=== PATIENT | female | born 1950 | race Caucasian/White ===

== ENCOUNTER 2016-10-13 11:38 | Inpatient (IN) | payer MEDICARE ==
[2016-10-13] VITALS (12 sets, daily range): BP systolic 120–155; BP diastolic 56–67
[~2016-10-13] VITALS: Ht 157.5 cm; Wt 83.9 kg
[2016-10-13] MEDS ORDERED: LISI10TA2 PO (14:13)
[2016-10-13] MEDS ORDERED: ACET500T68 PO (14:13)
[2016-10-13] MEDS ORDERED: ESTR10TA VG (14:13)
[2016-10-13] MEDS ORDERED: LIDOCAINE 2% 20 ML VIAL. ONE (15:04)
[2016-10-13] MEDS ORDERED: IOHEXOL 300 MG/ML 100ML VIAL. ONE (15:04)
[2016-10-13] MEDS ORDERED: MIDAZOLAM HCL/PF 2 MG/2 ML VIAL. ONE (15:08)
[2016-10-13] MEDS ORDERED: fentaNYL PF VIAL 100 MCG/2 ML VIAL ONE (15:08)
[2016-10-13] MEDS ORDERED: HEPARIN for IV BOLUS 10,000 UNIT/10 ML VIAL. ONE (15:08)
[2016-10-13] MEDS ORDERED: NITROGLYCERIN 200 MCG/2 ML SYRINGE FOR CATH/VASC LAB. ONE ×2 (15:08→15:43)
[2016-10-13] MEDS ORDERED: VERAPAMIL 5 MG/2 ML VIAL. ONE (15:08)
[2016-10-13] MEDS ORDERED: NITROGLYCERIN 200 MCG/2 ML SYRINGE FOR CATH/VASC LAB. ICAR ONE (15:30)
[2016-10-13] MEDS ORDERED: LIDOCAINE 2% 20 ML VIAL. IJ ONE (15:30)
[2016-10-13] MEDS ORDERED: fentaNYL PF VIAL 100 MCG/2 ML VIAL IV ONE (15:30)
[2016-10-13] MEDS ORDERED: VERAPAMIL 5 MG/2 ML VIAL. IART ONE (15:30)
[2016-10-13] MEDS ORDERED: NITROGLYCERIN 200 MCG/2 ML SYRINGE FOR CATH/VASC LAB. IART ONE (15:30)
[2016-10-13] MEDS ORDERED: MIDAZOLAM HCL/PF 2 MG/2 ML VIAL. IV ONE (15:30)
[2016-10-13] MEDS ORDERED: HEPARIN for IV BOLUS 10,000 UNIT/10 ML VIAL. IART ONE (15:30)
[2016-10-13] MEDS ORDERED: IOHEXOL 300 MG/ML 100ML VIAL. IART ONE (15:30)
--- NOTE | 2016-10-13 16:48 | CARD ---
APPROVED REPORT Procedure(s) performed: Left Heart Catheterization HISTORY : The patient is a 66 year-old female with a history of . INDICATION The indication(s) include : non-STEMI . PROCEDURE NARRATIVE The patient was brought electively to the cardiac catheterization lab. A timeout was performed confi rming the patient's name, date of , procedure, and site of procedure. All necessary personnel w ere wearing the appropriate protective equipment and radiation monitor devices. After explaining the risks and benefits of the procedure and alternatives, informed consent was obtained. (See nursing no ines for medications administered). The right wrist was sterilely prepped and draped in the usual fas hion. The right wrist was infiltrated with 1 mL of 2% lidocaine for subcutaneous anesthesia. A 6 Fr ench Terumo glide sheath was inserted into the right radial artery without difficulty. Right and lef t coronary angiography was performed using a 6Fr TIG 4.0 catheter. Left ventricular end diastolic pr essure was obtained with a pigtail catheter and pullback was performed after left ventriculography. All catheter exchanges and advancements were performed over a guidewire. At case completion the righ t radial sheath was removed and a Terumo radial band was applied with 13 ml of air. The patient tole rated the procedure well and there were no immediate complications. HEMODYNAMICS: LVEDP 20 mm Hg No gradient on LV to aortic pullback. LEFT VENTRICULOGRAM: EF 55% Anterobasal: Normal. Anterolateral: Normal Apical: Normal Diaphragmatic: Normal Posterobasal: Normal CORONARY ANGIOGRAPHY: LM is a large caliber vessel with normal angiographic appearance. LAD is a large caliber vessel with normal angiographic appearance. The distal vessel tapers to a smal l caliber vessel with mild spasm noted which improved after NTG administration. D1 is a moderate caliber vessel with normal angiographic apeparance. LCx is a moderate caliber non-dominant vessel with mild luminal irregularities. OM1 is a moderate caliber vessel with normal angiographic appearance. RCA is a large caliber dominant vessel with mild luminal irregularities. RPDA and RPL are moderate caliber vessels with normal angiographic appearance. Conclusion 1. Normal LV systolic function. EF 65% 2. No large vessel occlusive disease. 3. Possible component of microvascular spasm. Recommendations Aggressive Medical Therapy Consider calcium channel blockers for symptomatic angina.
[2016-10-13] MEDS ORDERED: HYDROcodone/APAP 5/325MG 1 TAB TABLET PO PRN (17:45)
[2016-10-13] MEDS ORDERED: hydrALAZINE 20 MG/ML VIAL. IVP PRN (17:45)
[2016-10-13] MEDS ORDERED: ONDANSETRON PF 4 MG/2 ML VIAL. IV PRN (17:45)
[2016-10-13] MEDS ORDERED: ALBUTEROL SULFATE 2.5 MG/3 ML NEBU. NEB PRN (17:45)
[2016-10-13] MEDS ORDERED: ACETAMINOPHEN 325 MG TABLET. PO PRN (17:45)
[2016-10-13] MEDS ORDERED: MORPHINE SULFATE 2 MG/ML DISP.SYRIN. IV PRN (18:00)
--- NOTE | 2016-10-13 18:08 | PDOC1 ---
History and Physical Current Medications Current Medications Current Medications Medications (Trade) Dose Ordered Sig/Alejandra Start Time Stop Time Status Last Admin Dose Admin Acetaminophen (Tylenol) 325 mg PRN Q6HRS PRN 10/13/16 17:45 Acetaminophen/ Hydrocodone Bitart (Lortab 5/325) 1 tab PRN Q6HRS PRN 10/13/16 17:45 Albuterol Sulfate (Ventolin Neb Soln) 2.5 mg PRN Q4HRS PRN 10/13/16 17:45 Fentanyl Citrate (Fentanyl 2ml Vial) 50 mcg 1X ONCE 10/13/16 15:30 10/13/16 15:34 DC 10/13/16 15:41 50 MCG Heparin Sodium (Porcine) (Heparin Sodium) 2,500 unit 1X ONCE 10/13/16 15:30 10/13/16 15:33 DC 10/13/16 15:42 2,500 UNIT Heparin Sodium/ Sodium Chloride 1,000 unit 1X ONCE 10/13/16 15:30 10/13/16 15:33 DC 10/13/16 15:42 1,000 UNIT Hydralazine HCl (Apresoline) 10 mg PRN Q4HRS PRN 10/13/16 17:45 Iohexol (Omnipaque 300 Mg/ml) 100 ml 1X ONCE 10/13/16 15:30 10/13/16 15:33 DC 10/13/16 15:42 71 ML Lidocaine HCl 2 ml 1X ONCE 10/13/16 15:30 10/13/16 15:33 DC 10/13/16 15:40 2 ML Midazolam HCl (Versed) 1 mg 1X ONCE 10/13/16 15:30 10/13/16 15:33 DC 10/13/16 15:41 1 MG Morphine Sulfate 2 mg PRN Q2HR PRN 10/13/16 18:00 Nitroglycerin (Nitroglycerin) 200 mcg STK-MED ONCE 10/13/16 15:43 10/13/16 15:44 DC Ondansetron HCl (Zofran) 4 mg PRN Q8HRS PRN 10/13/16 17:45 Verapamil HCl (Verapamil) 2.5 mg 1X ONCE 10/13/16 15:30 10/13/16 15:33 DC 10/13/16 15:41 2.5 MG Allergies Allergies Allergies Coded Allergies Type Severity Reaction Last Updated Verified Sulfa (Sulfonamide Antibiotics) Allergy Unknown 10/13/16 Yes meperidine Allergy Unknown 10/13/16 Yes ROS Review of System CONSTITUTIONAL: No fever or chills EYES: No recent changes SKIN: No rash or itching CARDIOVASCULAR: chest pain, no syncope, palpitations, or edema RESPIRATORY: No SOB or cough GASTROINTESTINAL: No nausea, vomiting or abdominal pain NEUROLOGICAL: No headaches or weakness ENDOCRINE: No cold or heat intolerance GENITOURINARY: No urgency or frequency of urination MUSCULOSKELETAL: No back pain or joint pain LYMPHATICS: No enlarged lymph nodes PSYCHIATRIC: No anxiety or depression Physical Exam Physical Exam GEN.: No apparent distress. Alert and oriented. HEENT: Head is normocephalic, atraumatic NECK: Supple. no jvd LUNGS: Clear to auscultation. normal airflow HEART: bradycardia.S1, S2 present. Peripheral pulses intact ABDOMEN: Soft, nontender. Positive bowel sounds. EXTREMITIES: Without any cyanosis. NEUROLOGIC: Normal speech, normal tone PSYCHIATRIC: Normal affect, normal mood. SKIN: dry, Vitals Vitals Vital Signs Date Time Temp Pulse Resp B/P Pulse Ox O2 Delivery O2 Flow Rate FiO2 10/13/16 17:05 50 20 126/58 92 Room Air 10/13/16 15:44 2.0 VTE Prophylaxis Ordered VTE Prophylaxis Devices: No VTE Pharmacological Prophylaxi: No ROSEMARIE LOVE MD October 13, 2016 18:08
[2016-10-13] MEDS ORDERED: amLODIPine BESYLATE 5 MG TABLET PO ONE (20:00)
--- NOTE | 2016-10-13 20:00 | HP ---
ADMIT DATE: 10/13/2016 CHIEF COMPLAINT: Chest pain, dizziness. HISTORY OF PRESENT ILLNESS: A 66-year-old female patient with prior history of diabetes and hypertension, presented to [facility]. She was transferred from [facility] for Cardiology followup and cardiac catheterization. She reported have some chest pain, which was started while she was going to see a dentist's office 2 days ago and the pain is midsternal in nature and lasting for a few seconds and described it as a chest pressure on the left side upper chest and radiating to neck and jaw now. She also complains of some shortness of breath with some lightheadedness, dizziness and bradycardic. Initially her heart rate was in 30s at the time of her presentation with blood pressures more than 200. At the time of my examination heart was running 40s, which is unusual as for the patient. PAST MEDICAL HISTORY: Hypertension, seizures, possible reactive air disease, pulmonary hypertension, type 2 diabetes mellitus. PAST SURGICAL HISTORY: Cataract, cholecystectomy. FAMILY HISTORY: Mother had coronary artery disease. SOCIAL HISTORY: No smoking, no alcohol, no ethyl alcohol abuse. ALLERGIES: SULFA AND MEPERIDINE. REVIEW OF SYSTEMS AND PHYSICAL EXAMINATION: Please see my electronic H and P. LABORATORY DATA: CBC, BMP reviewed and are within normal limits. EKG, sinus bradycardia, left anterior fascicular block and a mild elevation of troponins. ASSESSMENT: 1. NSTEMI present on admission with bradycardia. 2. Sinus bradycardia with dizziness. 3. Hypertension. 4. Pulmonary hypertension by history. 5. Diabetes mellitus, well controlled. PLAN: 1. Due to her continued symptoms NSTEMI, she has been taken to cardiac catheterization and as per the preliminary report she had normal LV systolic function with no large vessel occlusive disease and she may have a component of microvascular spasm and recommend calcium channel blockers. 2. At this moment I will change her medications from lisinopril to amlodipine and continue to monitor her on telemetry as the patient is bradycardic and symptomatic with dizziness. 3. Cardiology will follow the patient. 4. I will check a lipid panel and HbA1c. 5. Start her on aspirin. 6. Post-cath protocol. 7. Supportive care plan explained to the patient and her at bedside, agree with the current plan. ROSEMARIE LOVE MD DR: VICTOR MANUEL/kristel JOB#: [id number] / [id number] SATINDER
[2016-10-13] MEDS: LISINOPRIL 10 MG TABLET PO SCH (21:46)
[2016-10-14 03:03] VITALS: BP 129/57
[2016-10-14 04:46] LABS: BASO % 1 % (0-3); EOS % 14 % (0-3); HEMATOCRIT 43.9 % (36.0-47.0); HEMOGLOBIN 14.6 g/dL (12.0-15.5); LYMPH # 2.3 x10^3/uL (1.0-4.8); LYMPH % 36 % (24-48); MEAN CORPUSCULAR HEMOGLOBIN 31 pg (25-35); MEAN CORPUSCULAR HGB CONC 33 g/dL (31-37); MEAN CORPUSCULAR VOLUME 93 fL (79-100); MONO % 7 % (0-9); NEUT % 42 % (31-73); PLATELET COUNT 191 x10^3/uL (140-400); RED BLOOD COUNT 4.73 x10^6/uL (3.50-5.40); RED CELL DISTRIBUTION WIDTH 13.9 % (11.5-14.5); WHITE BLOOD COUNT 6.5 x10^3/uL (4.0-11.0)
[2016-10-14 05:02] LABS: CALCIUM 8.6 mg/dL (8.5-10.1); CREATININE 0.9 mg/dL (0.6-1.0); GFR 62.5; POTASSIUM 4.1 mmol/L (3.5-5.1)
[2016-10-14 07:00] VITALS: BP 133/60
[2016-10-14] MEDS ORDERED: LISINOPRIL 10 MG TABLET PO SCH (09:00)
[2016-10-14] MEDS: LISINOPRIL 10 MG TABLET PO SCH (09:25)
--- NOTE | 2016-10-14 10:24 | PDOC ---
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 10/14/16 1023: CARDIO Progress Notes Date and Time Date of Service 10/14/2016 Time of Evaluation 1000 Vitals Vitals Vital Signs Date Time Temp Pulse Resp B/P Pulse Ox O2 Delivery O2 Flow Rate FiO2 10/14/16 09:25 50 133/60 10/14/16 08:18 Room Air 10/14/16 07:00 97.6 18 95 97.6 10/13/16 15:44 2.0 Weight Weight [ ] Input and Output Intake and Output Intake and Output 10/14/16 07:00 Intake Total 540 ml Balance 540 ml Intake Oral 540 ml # Voids 3 Laboratory Labs Laboratory Tests Test 10/14/16 04:00 White Blood Count 6.5x10^3/uL (4.0-11.0) Red Blood Count 4.73x10^6/uL (3.50-5.40) Hemoglobin 14.6g/dL (12.0-15.5) Hematocrit 43.9% (36.0-47.0) Mean Corpuscular Volume 93fL (79-100) Mean Corpuscular Hemoglobin 31pg (25-35) Mean Corpuscular Hemoglobin Concent 33g/dL (31-37) Red Cell Distribution Width 13.9% (11.5-14.5) Platelet Count 191x10^3/uL (140-400) Neutrophils (%) (Auto) 42% (31-73) Lymphocytes (%) (Auto) 36% (24-48) Monocytes (%) (Auto) 7% (0-9) Eosinophils (%) (Auto) 14% (0-3) Basophils (%) (Auto) 1% (0-3) Neutrophils # (Auto) 2.7x10^3uL (1.8-7.7) Lymphocytes # (Auto) 2.3x10^3/uL (1.0-4.8) Monocytes # (Auto) 0.5x10^3/uL (0.0-1.1) Eosinophils # (Auto) 0.9x10^3/uL (0.0-0.7) Basophils # (Auto) 0.0x10^3/uL (0.0-0.2) Sodium Level 139mmol/L (136-145) Potassium Level 4.1mmol/L (3.5-5.1) Chloride Level 105mmol/L (98-107) Carbon Dioxide Level 29mmol/L (21-32) Anion Gap 5 (6-14) Blood Urea Nitrogen 14mg/dL (7-20) Creatinine 0.9mg/dL (0.6-1.0) Estimated GFR (Cockcroft-Gault) 62.5 Glucose Level 108mg/dL (70-99) Calcium Level 8.6mg/dL (8.5-10.1) Physical Exam HEENT: Neck Supple W Full Motion Chest: Symmetric LUNGS: Clear to Auscultation Heart: S1S2, RRR (SR) Abdomen: Soft N/T Extremities: No Edema, No Calf Tenderness Neurology: alert, oriented, follow commands Other Exams right wrist arteriotomy site intact, no erythema, swelling, neurovascular status intact Assessment Assessment 1. Chest pain: noted with symptoms compatible with NSTEMI. Etiology, Coronary vasopasm. 2. S/P LHC: 10/13/2016. Noted with no significant coronary disease but notable for distal LAD tapering to small caliber vessel with mild spasm. 3. HTN: controlled 4. HLP: LDL 103 HDL 78 5. DM2: diet controlled. BG controlled Recommendations 1. No BB due to bradycardia, decrease lisinopril and start on low dose norvasc 2. ECASA 81 mg po daily. Pt elected not to start on statin for now. 3. May DC per cardiac perspective. F/U in office on 11/11 at 1300 at [place] 4. Discussed findings with pt and spouse. ANABELLE ABURTO MD 10/14/160: CARDIO Progress Notes Plan Plan Pt. seen and examined. 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 No acute events overnight. Denies any pain today. Med changes as above. Will f/u in 4 weeks. Thx for consult. LAMAR BARROS APRN October 14, 2016 10:23 ANABELLE ABURTO MD October 14, 2016 21:10
[2016-10-14] MEDS ORDERED: ASPIRIN ENTERIC COATED 81 MG TABLET.DR. PO SCH (10:30)
[2016-10-14] MEDS ORDERED: amLODIPine BESYLATE 5 MG TABLET PO SCH (10:30)
[2016-10-14 11:00] VITALS: BP 132/60
[2016-10-14 11:52] VITALS: BP 132/60
--- NOTE | 2016-10-14 12:53 | ACF ---
Admission Forms Criteria MYOCARDIAL INFARCTION Clinical Indications for Admission to Inpatient Care (Place 'X' for any and all applicable criteria): Admission is indicated for 1 or more of the following (1)(2)(3)(4): [X]I. Acute MT [ ]II. Contraindications and/or Inappropriate clinical situations for Observational Care in patients with Myocardial Infarction, when ANY ONE of the following is required: [ ]a) Patient with High risk of cardiac embolism (e.g, patients with previous cardiac embolism, LVEF < 40%, age >75 and patients with prosthetic valve) 18 [ ]b) Patient with Moderate risk including DM patient, CAD and patient aged 65-75 18 [ ]c) Patient with any change in cardiac biomarker especially troponin should be managed as high risk in an inpatient setting 19 [ ]d) Physician judgement irrespective of ECG and other diagnostic findings 20 [ ]III.General contraindications and/or Inappropriate clinical situations for Observational Care in patients with Myocardial Infarction, when ANY ONE of the following is required: [ ]a) Prediction of prolongation of LOS based on ANY ONE of the following may be considered as a contraindication for observational care 2, 3, 4, 5, 6, 7, 8, 9, 10, 11 [ ]i) Age > 65 yrs. [ ]ii) Patient arriving by ambulance [ ]iii) Patient with high acuity [ ]iv) Patient requiring vital sign monitoring [ ]v) Patient on IV medication [ ]b) Systolic blood pressures greater than or equal to 180mmHg 3,12 [ ]c) Patient with altered mental status including delirium and other alteration of consciousness, (3) [ ]d) Patient whose discharge disposition will be to a long term home or rehabilitation home should not be managed in Emergency Department Observation Unit. CMS rule requires 3 days hospital stay before such placement. 3,13 [ ]e) Patient with failure to thrive due to broad array of etiologies 3 ,16,17 [ ]f) Inability to ambulate 3,14 Extended stay beyond goal length of stay may be needed for (1)(18)(20)(24)(25): [ ]a) Hemodynamic instability, persisting symptoms after intensive medical management, or recurring severe, prolonged symptoms [ ]b) Intravascular procedural complications such as acute vessel closure, stent thrombosis, stent malposition, or vessel dissection (26)(27)(28) [ ]c) Extravascular procedural complications such as retroperitoneal hematoma , pericardial effusion, or cardiac tamponade [ ]d) Entry site complications causing bleeding, hematoma or distal ischemia and requiring ongoing monitoring, surgical repair or surgical thrombectomy. Dangerous arrhythmia [ ]e) Complicated percutaneous coronary intervention (e.g., unsuccessful percutaneous coronary intervention or percutaneous coronary intervention of non- [place] vessel) [ ]f) Urgent or emergent surgery for complications of MT (e.g., ventricular rupture, valvular insufficiency) [ ]g) Surgical revascularization via coronary artery bypass graft [ ]h) Heart failure (e.g., pulmonary edema) [ ]i) Unstable pulmonary comorbidities, including COPD or pneumonia (31) [ ]j) Acute renal failure The original Prepared Response content created by [employer] has been revised. The portions of the content which have been revised are identified through the use of italic text or in bold, and [facility] [employer] has neither reviewed nor approved the modified material. All other unmodified content is copyright [facility] [employer] Please see references footnoted in the original [facility] [employer] edition 2016 Admission Criteria Met?: Yes ANISA SYED October 14, 2016 12:53
[2016-10-14] MEDS ORDERED: AMLO5TAB2 PO (13:46)
[2016-10-14] MEDS ORDERED: LISI-338 PO (13:46)
--- NOTE | 2016-10-14 13:52 | PDOC3 ---
Discharge Summary Visit Information Date of Admission: October 13, 2016 Date of Discharge: October 14, 2016 Admitting Diagnosis: CHEST PAIN Final Diagnosis 1. Chest pain: STABLE ANGINA, Coronary vasopasm. 2. S/P LHC: 10/13/2016. no significant coronary disease but notable for distal LAD tapering to small caliber vessel with mild spasm. 3. HTN: controlled 4. HLP: LDL 103 HDL 78 5. DM2: diet controlled Problems Medical Problems: (1) Angina at rest Status: Acute Brief Hospital Course Allergies Allergies Coded Allergies Type Severity Reaction Last Updated Verified Sulfa (Sulfonamide Antibiotics) Allergy Intermediate 10/14/16 Yes meperidine Allergy Intermediate 10/14/16 Yes Vital Signs Vital Signs Date Time Temp Pulse Resp B/P Pulse Ox O2 Delivery O2 Flow Rate FiO2 10/14/16 11:52 51 132/60 10/14/16 11:00 97.9 18 95 Room Air 97.9 10/13/16 15:44 2.0 Lab Results Laboratory Tests Test 10/14/16 04:00 White Blood Count 6.5x10^3/uL (4.0-11.0) Red Blood Count 4.73x10^6/uL (3.50-5.40) Hemoglobin 14.6g/dL (12.0-15.5) Hematocrit 43.9% (36.0-47.0) Mean Corpuscular Volume 93fL (79-100) Mean Corpuscular Hemoglobin 31pg (25-35) Mean Corpuscular Hemoglobin Concent 33g/dL (31-37) Red Cell Distribution Width 13.9% (11.5-14.5) Platelet Count 191x10^3/uL (140-400) Neutrophils (%) (Auto) 42% (31-73) Lymphocytes (%) (Auto) 36% (24-48) Monocytes (%) (Auto) 7% (0-9) Eosinophils (%) (Auto) 14% (0-3) Basophils (%) (Auto) 1% (0-3) Neutrophils # (Auto) 2.7x10^3uL (1.8-7.7) Lymphocytes # (Auto) 2.3x10^3/uL (1.0-4.8) Monocytes # (Auto) 0.5x10^3/uL (0.0-1.1) Eosinophils # (Auto) 0.9x10^3/uL (0.0-0.7) Basophils # (Auto) 0.0x10^3/uL (0.0-0.2) Sodium Level 139mmol/L (136-145) Potassium Level 4.1mmol/L (3.5-5.1) Chloride Level 105mmol/L (98-107) Carbon Dioxide Level 29mmol/L (21-32) Anion Gap 5 (6-14) Blood Urea Nitrogen 14mg/dL (7-20) Creatinine 0.9mg/dL (0.6-1.0) Estimated GFR (Cockcroft-Gault) 62.5 Glucose Level 108mg/dL (70-99) Calcium Level 8.6mg/dL (8.5-10.1) Laboratory Tests Test 10/14/16 04:00 White Blood Count 6.5x10^3/uL (4.0-11.0) Red Blood Count 4.73x10^6/uL (3.50-5.40) Hemoglobin 14.6g/dL (12.0-15.5) Hematocrit 43.9% (36.0-47.0) Mean Corpuscular Volume 93fL (79-100) Mean Corpuscular Hemoglobin 31pg (25-35) Mean Corpuscular Hemoglobin Concent 33g/dL (31-37) Red Cell Distribution Width 13.9% (11.5-14.5) Platelet Count 191x10^3/uL (140-400) Neutrophils (%) (Auto) 42% (31-73) Lymphocytes (%) (Auto) 36% (24-48) Monocytes (%) (Auto) 7% (0-9) Eosinophils (%) (Auto) 14% (0-3) Basophils (%) (Auto) 1% (0-3) Neutrophils # (Auto) 2.7x10^3uL (1.8-7.7) Lymphocytes # (Auto) 2.3x10^3/uL (1.0-4.8) Monocytes # (Auto) 0.5x10^3/uL (0.0-1.1) Eosinophils # (Auto) 0.9x10^3/uL (0.0-0.7) Basophils # (Auto) 0.0x10^3/uL (0.0-0.2) Sodium Level 139mmol/L (136-145) Potassium Level 4.1mmol/L (3.5-5.1) Chloride Level 105mmol/L (98-107) Carbon Dioxide Level 29mmol/L (21-32) Anion Gap 5 (6-14) Blood Urea Nitrogen 14mg/dL (7-20) Creatinine 0.9mg/dL (0.6-1.0) Estimated GFR (Cockcroft-Gault) 62.5 Glucose Level 108mg/dL (70-99) Calcium Level 8.6mg/dL (8.5-10.1) Brief Hospital Course Ms. Brown is a 66 old female, admit w. chest pain, angina. r/o ACS, taken to cardiac cath, tapering consistent with spasm CARDIOLOGY Recommendations 1. No BB due to bradycardia, decrease lisinopril and start on low dose norvasc 2. ECASA 81 mg po daily. Pt elected not to start on statin for now. 3. May DC per cardiac perspective. F/U in office on 11/11 at 1300 at [place] Discharge Information Condition at Discharge: Improved Follow Up: Weeks Disposition/Orders: D/C to Home Scheduled Estradiol (Vagifem) 1 TAB VG TWICE WEEKLY (Reported) Lisinopril (Lisinopril) 1 TAB PO DAILY (Reported) Scheduled PRN Acetaminophen (Acetaminophen) 1,000 MG PO Q6HRS PRN PRN PAIN (Reported) Patient Instructions Patient Instructions time> 30 KRISTEN CLEMENS MD October 14, 2016 13:52
[2016-10-15] MEDS ORDERED: LISINOPRIL 5 MG TABLET. PO SCH (09:00)
== END 2016-10-14 15:41 | disposition home or self-care (01) | DRG 287 ==
LOC: 2 SOUTH 13:37
PROVIDERS: ADMIT Internal Medicine; ATTEND Internal Medicine
PROC: 4A023N7 Measurement of Cardiac Sampling and Pressure, Left Heart, Percutaneous Approach (ICD-10-PCS; principal; 2016-10-13)
PROC: B2111ZZ Fluoroscopy of Multiple Coronary Arteries using Low Osmolar Contrast (ICD-10-PCS; 2016-10-13)
PROC: B2151ZZ Fluoroscopy of Left Heart using Low Osmolar Contrast (ICD-10-PCS; 2016-10-13)
DX: I20.1 Angina pectoris with documented spasm (principal); I10 Essential (primary) hypertension; E11.9 Type 2 diabetes mellitus without complications; I27.2 Other secondary pulmonary hypertension; R00.1 Bradycardia, unspecified; E78.5 Hyperlipidemia, unspecified; I20.8 Other forms of angina pectoris; Z82.49 Family history of ischemic heart disease and other diseases of the circulatory system; Z98.49 Cataract extraction status, unspecified eye; Z90.49 Acquired absence of other specified parts of digestive tract; Z88.2 Allergy status to sulfonamides
CPT/HCPCS: 36415; 80048; 83036; 85027; 93458; 94250; J2250; J3010; J3490; Q9967

== ENCOUNTER → 2017-01-04 | Outpatient (CLI) | payer MEDICARE ==
[~2017-01-04] MED LIST: ACET500T68 PO; AMLO5TAB2 PO; ESTR10TA VG; LISI-338 PO; LISI10TA2 PO
--- NOTE | 2017-01-04 09:38 | KCIC ---
MRI of the chest without contrast 01/04/2017 CLINICAL HISTORY: Swelling and possible mass involving the right anterior superior chest for the last 3-4 weeks. TECHNIQUE: Unenhanced T1-weighted and inversion recovery sagittal, coronal and axial images of the chest in the area where the patient feels a palpable abnormality was performed. A MRI compatible marker was placed by the patient in the area where she feels swelling/mass within the right medial anterior superior chest wall. FINDINGS: Comparison is made to the CTA of the chest performed at [facility] dated 12/03/2016. No abnormal soft tissue mass or fluid collection is seen within the soft tissues of the visualized portions of the anterior chest wall. The marrow signal of the visualized bony structures is within normal limits. IMPRESSION: No abnormal soft tissue mass or fluid collection is seen within the right anterior chest. Electronically signed by: Napoleon Ndiaye MD (01/04/2017 9:34 AM) [email or web address]
== END | disposition home or self-care (01) ==
LOC: KCIC MRI 07:54
PROVIDERS: ATTEND Family Medicine
DX: M79.9 Soft tissue disorder, unspecified (principal); R22.9 Localized swelling, mass and lump, unspecified
CPT/HCPCS: 71550

== ENCOUNTER → 2018-01-14 | Outpatient (CLI) | payer MEDICARE | END | disposition home or self-care (01) | LOC: PF 08:53 | DX: R07.9 Chest pain, unspecified (principal); R06.02 Shortness of breath; I10 Essential (primary) hypertension; E11.9 Type 2 diabetes mellitus without complications; E78.5 Hyperlipidemia, unspecified | CPT/HCPCS: 94010; 94729 ==